=== PATIENT | male | born 1965 | race Caucasian/White ===

== ENCOUNTER 2017-08-25 08:59 | Emergency (ER) | payer OTHER ==
[~2017-08-25] VITALS: Ht 185.4 cm; Wt 107.3 kg
[~2017-08-25 08:59] MED LIST: ADVIL200 MG PO; ALDACTONE25 MG PO; LASIX40 MG PO; LOSARTAN POTASS50 MG PO; ULTRAM50 MG PO
[2017-08-25 10:27] LABS: HEMATOCRIT 32.3 % (38.0-50.0); HEMOGLOBIN 10.9 G/DL (12.5-16.6); MCH 31.3 PG (29.0-34.0); MCHC 33.7 G/DL (30.0-36.0); MCV 92.8 FL (86-99); PLATELET COUNT 426 K/uL (156-360); RBC DIS.WIDTH-CV 13.2 % (11.8-14.6); RBC DIS.WIDTH-SD 45.1 % (39-53); RED BLOOD COUNT 3.48 M/uL (4.00-5.50); WHITE BLOOD COUNT 6.2 K/uL (4.1-10.2)
[2017-08-25 10:35] LABS: ALBUMIN 1.5 g/dL (3.2-4.8); CHLORIDE 103 mEq/L (99-109); POTASSIUM 3.6 mEq/L (3.7-5.4); SODIUM 138 mEq/L (136-147)
[2017-08-25 10:38] LABS: GLUCOSE 85 mg/dL (70-99); TOTAL PROTEIN 4.3 g/dL (6.4-8.3)
[2017-08-25 10:40] LABS: TOTAL BILIRUBIN 0.1 mg/dL (0.0-1.0)
[2017-08-25 10:41] LABS: ALKALINE PHOSPHATASE 77 IU/L (3-129); CREATININE 0.8 mg/dL (0.6-1.3); GFR ESTIMATE (CALCULATED) > 59 mL/min/ (58.99-99999)
[2017-08-25 10:42] LABS: UREA NITROGEN (BUN) 14 mg/dL (9-23)
[2017-08-25 10:43] LABS: AST (GOT) 25 IU/L (2-34)
[2017-08-25 10:44] LABS: ALT (GPT) 18 IU/L (3-49)
[2017-08-25 11:21] LABS: APPEARANCE SL.HAZY ((CLEAR)); BILIRUBIN NEGATIVE; BLOOD NEGATIVE; COLOR YELLOW ((YELLOW)); GLUCOSE (STRIP) 50; KETONES 5; LEUKOCYTES NEGATIVE; NITRITE NEGATIVE; PROTEIN (STRIP) >=500; SPECIFIC GRAVITY 1.029 (1.000-1.030); UROBILINOGEN 0.2 MG/DL (0.2-1.0)
[2017-08-25 11:31] LABS: BACTERIA NONE SEEN /HPF; EPITHELIAL CELLS RARE /HPF; HYALINE CASTS 0-5 /LPF; MUCUS TRACE /LPF
[2017-08-25] MEDS ORDERED: LASIX40 MG PO (11:39)
[2017-08-25] MEDS ORDERED: SPIRONOLACTONE25 MG PO (11:39)
[2017-08-25] MEDS ORDERED: COZAAR50 MG PO (11:39)
[2017-08-25 13:00] VITALS: BP 154/94
== END 2017-08-25 13:00 | disposition home or self-care (01) ==
LOC: EME 08:59
PROVIDERS: Nurse Practitioner Family
DX: R60.1 Generalized edema (principal); E77.8 Other disorders of glycoprotein metabolism; F17.210 Nicotine dependence, cigarettes, uncomplicated; F10.21 Alcohol dependence, in remission; K42.9 Umbilical hernia without obstruction or gangrene; I10 Essential (primary) hypertension; Z91.14 Patient's other noncompliance with medication regimen; Z88.0 Allergy status to penicillin
CPT/HCPCS: 71046; 80053; 81003; 83880; 85027; 93005; 99281; 99285

== ENCOUNTER 2017-10-17 20:46 | Inpatient (IN) | payer OTHER ==
[~2017-10-17] VITALS: Ht 182.9 cm; Wt 91.5 kg
[~2017-10-17 20:46] MED LIST changes: +COZAAR50 MG PO; +SPIRONOLACTONE25 MG PO
[2017-10-17 21:29] LABS: BASOPHIL (%) 0.3 % (0-1); EOSINOPHIL (%) 1.1 % (0-5); EOSINOPHIL COUNT 0.1 K/uL (0-0.3); HEMATOCRIT 16.3 % (38.0-50.0); HEMOGLOBIN 5.2 G/DL (12.5-16.6); IMMATURE GRANULOCYTE (%) 0.3 % (0.0-0.7); LYMPHOCYTE (%) 16.9 % (15-42); LYMPHOCYTE COUNT 1.1 K/uL (1.0-2.8); MCH 29.9 PG (29.0-34.0); MCHC 31.9 G/DL (30.0-36.0); MCV 93.7 FL (86-99); MONOCYTE (%) 6.5 % (3-12); MONOCYTE COUNT 0.4 K/uL (0-0.8); NEUTROPHIL (%) 74.9 % (45-76); NEUTROPHIL COUNT 4.7 K/uL (1.8-6.4); PLATELET COUNT 439 K/uL (156-360); RBC DIS.WIDTH-CV 13.5 % (11.8-14.6); RBC DIS.WIDTH-SD 46.2 % (39-53); RED BLOOD COUNT 1.74 M/uL (4.00-5.50); WHITE BLOOD COUNT 6.3 K/uL (4.1-10.2)
[2017-10-17 21:34] LABS: CHLORIDE 107 mEq/L (99-109); POTASSIUM 4.3 mEq/L (3.7-5.4); SODIUM 141 mEq/L (136-147)
[2017-10-17 21:36] LABS: GLUCOSE 98 mg/dL (70-99)
[2017-10-17 21:39] LABS: CREATININE 0.7 mg/dL (0.6-1.3); GFR ESTIMATE (CALCULATED) > 59 mL/min/ (58.99-99999)
[2017-10-17 21:40] LABS: UREA NITROGEN (BUN) 14 mg/dL (9-23)
[2017-10-17] MEDS ORDERED: COZAAR50 MG PO (21:42)
[2017-10-17] MEDS ORDERED: ALDACTONE25 MG PO (21:42)
[2017-10-17] MEDS ORDERED: LO-DOSE ASPIRIN81 M1 PO (21:43)
[2017-10-17] MEDS ORDERED: ZOCOR20 MG PO (21:43)
[2017-10-17] MEDS ORDERED: LASIX40 MG PO (21:43)
[2017-10-17] MEDS ORDERED: NICODERM CQ1 EAC2 TD (21:44)
[2017-10-17 21:45] LABS: TROP-I INTERPRETATION NEGATIVE; TROPONIN-I < 0.01 ng/mL (0.0-0.30)
[2017-10-17 22:03] LABS: ALBUMIN 1.4 g/dL (3.2-4.8)
[2017-10-17 22:06] LABS: TOTAL PROTEIN 4.1 g/dL (6.4-8.3)
[2017-10-17 22:08] LABS: TOTAL BILIRUBIN 0.1 mg/dL (0.0-1.0)
[2017-10-17 22:09] LABS: ALKALINE PHOSPHATASE 84 IU/L (3-129)
[2017-10-17 22:11] LABS: AST (GOT) 16 IU/L (2-34); DIRECT BILIRUBIN 0.1 mg/dL (0.0-0.3)
[2017-10-17 22:12] LABS: ALT (GPT) 11 IU/L (3-49)
[2017-10-17 22:30] LABS: APPEARANCE CLOUDY ((CLEAR)); BILIRUBIN NEGATIVE; BLOOD SMALL; COLOR YELLOW ((YELLOW)); GLUCOSE (STRIP) 50; KETONES 5; LEUKOCYTES NEGATIVE; NITRITE NEGATIVE; PROTEIN (STRIP) >=500; SPECIFIC GRAVITY 1.022 (1.000-1.030); UROBILINOGEN 0.2 MG/DL (0.2-1.0)
[2017-10-17 22:37] LABS: BACTERIA RARE /HPF; EPITHELIAL CELLS RARE /HPF; MUCUS TRACE /LPF; RED BLOOD CELLS 0-5 /HPF (0-5); UCUL ADDED? YES
[2017-10-17 23:30] VITALS: BP 165/114
[2017-10-17 23:31] VITALS: BP 165/114
[2017-10-17 23:40] VITALS: BP 158/100
[2017-10-17 23:55] VITALS: BP 160/94
[2017-10-18] VITALS (35 sets, daily range): BP systolic 100–178; BP diastolic 63–114
[2017-10-18 04:08] LABS: CHLORIDE 105 mEq/L (99-109); POTASSIUM 3.9 mEq/L (3.7-5.4); SODIUM 141 mEq/L (136-147)
[2017-10-18 04:09] LABS: MAGNESIUM 1.8 mg/dL (1.3-2.7)
[2017-10-18 04:13] LABS: GLUCOSE 92 mg/dL (70-99)
[2017-10-18 04:14] LABS: CREATININE 0.8 mg/dL (0.6-1.3); GFR ESTIMATE (CALCULATED) > 59 mL/min/ (58.99-99999); PHOSPHORUS 4.3 mg/dL (2.5-4.9)
[2017-10-18 04:18] LABS: UREA NITROGEN (BUN) 15 mg/dL (9-23)
[2017-10-18 04:28] LABS: HEMATOCRIT 17.6 % (38.0-50.0); HEMOGLOBIN 5.6 G/DL (12.5-16.6); MCH 29.5 PG (29.0-34.0); MCHC 31.8 G/DL (30.0-36.0); MCV 92.6 FL (86-99); PLATELET COUNT 406 K/uL (156-360); RBC DIS.WIDTH-CV 14.2 % (11.8-14.6); RBC DIS.WIDTH-SD 47.6 % (39-53); WHITE BLOOD COUNT 4.7 K/uL (4.1-10.2)
[2017-10-18 06:42] LABS: HEPATITIS B SURFACE ANTIGEN Nonreactive
[2017-10-18 06:43] LABS: HEPATITIS C ANTIBODY Nonreactive
[2017-10-18 06:44] LABS: ANTI-HEPATITIS A VIRUS (IGM) Nonreactive
[2017-10-18 06:45] LABS: ANTI-HEPATITIS B CORE (IGM) Nonreactive
[2017-10-18 08:38] LABS: BASOPHIL (%) 0.7 % (0-1); EOSINOPHIL (%) 2.4 % (0-5); EOSINOPHIL COUNT 0.1 K/uL (0-0.3); HEMATOCRIT 18.6 % (38.0-50.0); IMMATURE GRANULOCYTE (%) 0.2 % (0.0-0.7); LYMPHOCYTE COUNT 1.1 K/uL (1.0-2.8); MCH 27.4 PG (29.0-34.0); MCHC 30.6 G/DL (30.0-36.0); MCV 89.4 FL (86-99); MONOCYTE (%) 8.5 % (3-12); MONOCYTE COUNT 0.4 K/uL (0-0.8); NEUTROPHIL (%) 62.2 % (45-76); NEUTROPHIL COUNT 2.6 K/uL (1.8-6.4); RBC DIS.WIDTH-CV 17.4 % (11.8-14.6); RBC DIS.WIDTH-SD 57.2 % (39-53); RED BLOOD COUNT 2.08 M/uL (4.00-5.50); WHITE BLOOD COUNT 4.1 K/uL (4.1-10.2)
[2017-10-18 08:40] LABS: HEMOGLOBIN 5.7 G/DL (12.5-16.6)
[2017-10-18 09:14] LABS: PLAT.SUFFICIENCY INCREASED; PLATELET COUNT 370 K/uL (156-360)
[2017-10-18 18:11] LABS: HEMATOCRIT 25.3 % (38.0-50.0); MCV 89.1 FL (86-99)
[2017-10-18 18:15] LABS: HEMOGLOBIN 7.9 G/DL (12.5-16.6)
[2017-10-19] VITALS (24 sets, daily range): BP systolic 134–179; BP diastolic 68–103
[2017-10-19 05:26] LABS: HEMATOCRIT 25.6 % (38.0-50.0); MCH 27.9 PG (29.0-34.0); MCHC 31.3 G/DL (30.0-36.0); MCV 89.2 FL (86-99); PLATELET COUNT 380 K/uL (156-360); RBC DIS.WIDTH-CV 17.1 % (11.8-14.6); RBC DIS.WIDTH-SD 55.8 % (39-53)
[2017-10-19 05:28] LABS: RED BLOOD COUNT 2.87 M/uL (4.00-5.50)
[2017-10-19 06:06] LABS: ALBUMIN 1.5 G/DL (3.2-4.8); ALKALINE PHOSPHATASE 61 IU/L (3-129); ALT (GPT) 7 IU/L (3-49); AST (GOT) 11 IU/L (2-34); CHLORIDE 102 MEQ/L (99-109); GFR ESTIMATE (CALCULATED) > 59 mL/min/ (58.99-99999); GLUCOSE 97 mg/dL (70-99); MAGNESIUM 1.8 mg/dl (1.3-2.7); POTASSIUM 4.1 MEQ/L (3.7-5.4); SODIUM 139 MEQ/L (136-147); TOTAL BILIRUBIN 0.1 MG/DL (0.0-1.0); TOTAL PROTEIN 3.9 G/DL (6.4-8.3); UREA NITROGEN (BUN) 16 mg/dL (9-23)
[2017-10-20] VITALS (18 sets, daily range): BP systolic 130–181; BP diastolic 66–102
[2017-10-20 05:05] LABS: BASOPHIL (%) 0.2 % (0-1); EOSINOPHIL (%) 2.7 % (0-5); EOSINOPHIL COUNT 0.1 K/uL (0-0.3); HEMATOCRIT 25.1 % (38.0-50.0); HEMOGLOBIN 7.8 G/DL (12.5-16.6); IMMATURE GRANULOCYTE (%) 0.2 % (0.0-0.7); LYMPHOCYTE (%) 23.5 % (15-42); LYMPHOCYTE COUNT 1.1 K/uL (1.0-2.8); MCH 27.7 PG (29.0-34.0); MCHC 31.1 G/DL (30.0-36.0); MONOCYTE (%) 11.3 % (3-12); MONOCYTE COUNT 0.5 K/uL (0-0.8); NEUTROPHIL (%) 62.1 % (45-76); PLATELET COUNT 357 K/uL (156-360); RBC DIS.WIDTH-CV 16.2 % (11.8-14.6); RBC DIS.WIDTH-SD 53.1 % (39-53); RED BLOOD COUNT 2.82 M/uL (4.00-5.50); WHITE BLOOD COUNT 4.8 K/uL (4.1-10.2)
[2017-10-20 05:57] LABS: CHLORIDE 99 MEQ/L (99-109); CREATININE 0.9 MG/DL (0.6-1.3); GFR ESTIMATE (CALCULATED) > 59 mL/min/ (58.99-99999); GLUCOSE 81 mg/dL (70-99); MAGNESIUM 1.6 mg/dl (1.3-2.7); PHOSPHORUS 3.7 mg/dL (2.5-4.9); POTASSIUM 3.9 MEQ/L (3.7-5.4); SODIUM 139 MEQ/L (136-147); UREA NITROGEN (BUN) 16 mg/dL (9-23)
[2017-10-21 04:20] VITALS: BP 130/69
[2017-10-21 05:33] LABS: BASOPHIL (%) 0.5 % (0-1); EOSINOPHIL (%) 4.2 % (0-5); EOSINOPHIL COUNT 0.2 K/uL (0-0.3); HEMATOCRIT 27.1 % (38.0-50.0); HEMOGLOBIN 8.5 G/DL (12.5-16.6); IMMATURE GRANULOCYTE (%) 0.4 % (0.0-0.7); LYMPHOCYTE (%) 25.1 % (15-42); LYMPHOCYTE COUNT 1.4 K/uL (1.0-2.8); MCH 27.6 PG (29.0-34.0); MCHC 31.4 G/DL (30.0-36.0); MONOCYTE (%) 9.3 % (3-12); MONOCYTE COUNT 0.5 K/uL (0-0.8); NEUTROPHIL (%) 60.5 % (45-76); NEUTROPHIL COUNT 3.3 K/uL (1.8-6.4); PLATELET COUNT 347 K/uL (156-360); RBC DIS.WIDTH-CV 15.6 % (11.8-14.6); RBC DIS.WIDTH-SD 49.9 % (39-53); RED BLOOD COUNT 3.08 M/uL (4.00-5.50); WHITE BLOOD COUNT 5.5 K/uL (4.1-10.2)
[2017-10-21 06:00] LABS: CHLORIDE 94 MEQ/L (99-109); CREATININE 0.8 MG/DL (0.6-1.3); GFR ESTIMATE (CALCULATED) > 59 mL/min/ (58.99-99999); GLUCOSE 98 mg/dL (70-99); MAGNESIUM 1.8 mg/dl (1.3-2.7); PHOSPHORUS 3.3 mg/dL (2.5-4.9); POTASSIUM 3.5 MEQ/L (3.7-5.4); SODIUM 134 MEQ/L (136-147); UREA NITROGEN (BUN) 13 mg/dL (9-23)
[2017-10-21 07:56] VITALS: BP 109/80
[2017-10-21 11:20] VITALS: BP 135/82
[2017-10-21 15:50] VITALS: BP 113/75
[2017-10-21 20:37] VITALS: BP 120/76
[2017-10-22 00:05] VITALS: BP 129/60
[2017-10-22 05:07] VITALS: BP 113/58
[2017-10-22 06:19] LABS: HDL CHOLESTEROL 30 MG/DL (Desirable>=40); LDL CHOLESTEROL 96 mg/dL (Desirable<100); NON-HDL CHOLESTEROL 134 mg/dL (Desirable<160); TOTAL CHOLESTEROL 164 mg/dL (Desirable<200); TRIGLYCERIDES 188 MG/DL (Normal: <150)
[2017-10-22 07:52] VITALS: BP 131/70
[2017-10-22 12:10] VITALS: BP 123/69
[2017-10-22 16:03] VITALS: BP 124/62
[2017-10-23 00:02] VITALS: BP 147/67
[2017-10-23 07:40] VITALS: BP 160/78
[2017-10-23 09:00] LABS: HEMOGLOBIN 8.1 G/DL (12.5-16.6); MCH 28.1 PG (29.0-34.0); MCHC 31.2 G/DL (30.0-36.0); MCV 90.3 FL (86-99); PLATELET COUNT 353 K/uL (156-360); RBC DIS.WIDTH-CV 15.3 % (11.8-14.6); RBC DIS.WIDTH-SD 50.4 % (39-53); RED BLOOD COUNT 2.88 M/uL (4.00-5.50); WHITE BLOOD COUNT 5.6 K/uL (4.1-10.2)
[2017-10-23 09:24] LABS: CHLORIDE 93 MEQ/L (99-109); CREATININE 0.9 MG/DL (0.6-1.3); GFR ESTIMATE (CALCULATED) > 59 mL/min/ (58.99-99999); GLUCOSE 87 mg/dL (70-99); POTASSIUM 3.4 MEQ/L (3.7-5.4); SODIUM 134 MEQ/L (136-147); UREA NITROGEN (BUN) 13 mg/dL (9-23)
[2017-10-23 15:50] VITALS: BP 115/64
[2017-10-23 23:31] VITALS: BP 146/73
[2017-10-24 06:28] LABS: HEMATOCRIT 27.3 % (38.0-50.0); HEMOGLOBIN 8.3 G/DL (12.5-16.6); MCH 27.5 PG (29.0-34.0); MCHC 30.4 G/DL (30.0-36.0); MCV 90.4 FL (86-99); PLATELET COUNT 360 K/uL (156-360); RBC DIS.WIDTH-CV 15.1 % (11.8-14.6); RBC DIS.WIDTH-SD 49.9 % (39-53); RED BLOOD COUNT 3.02 M/uL (4.00-5.50); WHITE BLOOD COUNT 5.9 K/uL (4.1-10.2)
[2017-10-24 06:51] LABS: CHLORIDE 91 MEQ/L (99-109); GFR ESTIMATE (CALCULATED) > 59 mL/min/ (58.99-99999); GLUCOSE 95 mg/dL (70-99); POTASSIUM 3.8 MEQ/L (3.7-5.4); SODIUM 133 MEQ/L (136-147); UREA NITROGEN (BUN) 15 mg/dL (9-23)
[2017-10-24 07:23] VITALS: BP 111/57
[2017-10-24 11:35] LABS: UR CREATININE CONCENTRATION 12.7 MG/DL
[2017-10-24 15:20] VITALS: BP 119/70
[2017-10-24 23:51] VITALS: BP 120/65
[2017-10-25 05:31] LABS: BASOPHIL (%) 0.6 % (0-1); EOSINOPHIL (%) 4.4 % (0-5); EOSINOPHIL COUNT 0.2 K/uL (0-0.3); HEMATOCRIT 23.3 % (38.0-50.0); HEMOGLOBIN 7.1 G/DL (12.5-16.6); IMMATURE GRANULOCYTE (%) 0.2 % (0.0-0.7); LYMPHOCYTE (%) 22.2 % (15-42); LYMPHOCYTE COUNT 1.2 K/uL (1.0-2.8); MCH 27.5 PG (29.0-34.0); MCHC 30.5 G/DL (30.0-36.0); MCV 90.3 FL (86-99); MONOCYTE (%) 10.1 % (3-12); MONOCYTE COUNT 0.5 K/uL (0-0.8); NEUTROPHIL (%) 62.5 % (45-76); NEUTROPHIL COUNT 3.3 K/uL (1.8-6.4); PLATELET COUNT 348 K/uL (156-360); RBC DIS.WIDTH-CV 15.2 % (11.8-14.6); RBC DIS.WIDTH-SD 50.3 % (39-53); RED BLOOD COUNT 2.58 M/uL (4.00-5.50); WHITE BLOOD COUNT 5.2 K/uL (4.1-10.2)
[2017-10-25 06:02] LABS: ALKALINE PHOSPHATASE 62 IU/L (3-129); ALT (GPT) 7 IU/L (3-49); AST (GOT) 10 IU/L (2-34); CHLORIDE 95 MEQ/L (99-109); CREATININE 1.1 MG/DL (0.6-1.3); GFR ESTIMATE (CALCULATED) > 59 mL/min/ (58.99-99999); GLUCOSE 89 mg/dL (70-99); MAGNESIUM 1.8 mg/dl (1.3-2.7); PHOSPHORUS 3.8 mg/dL (2.5-4.9); POTASSIUM 3.8 MEQ/L (3.7-5.4); SODIUM 135 MEQ/L (136-147); TOTAL BILIRUBIN 0.1 MG/DL (0.0-1.0); TOTAL PROTEIN 3.5 G/DL (6.4-8.3); UREA NITROGEN (BUN) 15 mg/dL (9-23)
[2017-10-25 06:03] LABS: ALBUMIN 1.1 G/DL (3.2-4.8)
[2017-10-25 07:55] VITALS: BP 133/69
[2017-10-25 10:53] LABS: BASOPHIL (%) 0.7 % (0-1); EOSINOPHIL COUNT 0.2 K/uL (0-0.3); HEMOGLOBIN 7.9 G/DL (12.5-16.6); IMMATURE GRANULOCYTE (%) 0.3 % (0.0-0.7); LYMPHOCYTE (%) 19.8 % (15-42); LYMPHOCYTE COUNT 1.2 K/uL (1.0-2.8); MCH 27.7 PG (29.0-34.0); MCHC 30.4 G/DL (30.0-36.0); MCV 91.2 FL (86-99); MONOCYTE (%) 7.5 % (3-12); MONOCYTE COUNT 0.5 K/uL (0-0.8); NEUTROPHIL (%) 68.7 % (45-76); NEUTROPHIL COUNT 4.1 K/uL (1.8-6.4); PLATELET COUNT 373 K/uL (156-360); RBC DIS.WIDTH-CV 15.2 % (11.8-14.6); RBC DIS.WIDTH-SD 50.9 % (39-53); RED BLOOD COUNT 2.85 M/uL (4.00-5.50)
[2017-10-25 15:25] VITALS: BP 144/67
[2017-10-25 22:16] LABS: STOOL OCCULT BLD 1ST SPECIMEN NEGATIVE
[2017-10-26] VITALS: BP 131/62
[2017-10-26 06:44] LABS: BASOPHIL (%) 0.8 % (0-1); EOSINOPHIL (%) 4.3 % (0-5); EOSINOPHIL COUNT 0.2 K/uL (0-0.3); HEMATOCRIT 21.7 % (38.0-50.0); IMMATURE GRANULOCYTE (%) 0.4 % (0.0-0.7); LYMPHOCYTE (%) 24.4 % (15-42); LYMPHOCYTE COUNT 1.2 K/uL (1.0-2.8); MCH 27.7 PG (29.0-34.0); MCHC 30.9 G/DL (30.0-36.0); MCV 89.7 FL (86-99); MONOCYTE (%) 10.8 % (3-12); MONOCYTE COUNT 0.5 K/uL (0-0.8); NEUTROPHIL (%) 59.3 % (45-76); NEUTROPHIL COUNT 2.9 K/uL (1.8-6.4); PLATELET COUNT 350 K/uL (156-360); RBC DIS.WIDTH-CV 15.4 % (11.8-14.6); RBC DIS.WIDTH-SD 50.4 % (39-53); RED BLOOD COUNT 2.42 M/uL (4.00-5.50); WHITE BLOOD COUNT 4.9 K/uL (4.1-10.2)
[2017-10-26 06:49] LABS: HEMOGLOBIN 6.7 G/DL (12.5-16.6)
[2017-10-26 06:55] LABS: ALKALINE PHOSPHATASE 63 IU/L (3-129); ALT (GPT) 6 IU/L (3-49); AST (GOT) 10 IU/L (2-34); CHLORIDE 95 MEQ/L (99-109); CREATININE 1.1 MG/DL (0.6-1.3); GFR ESTIMATE (CALCULATED) > 59 mL/min/ (58.99-99999); GLUCOSE 92 mg/dL (70-99); SODIUM 136 MEQ/L (136-147); TOTAL BILIRUBIN 0.1 MG/DL (0.0-1.0); TOTAL PROTEIN 3.4 G/DL (6.4-8.3); UREA NITROGEN (BUN) 18 mg/dL (9-23)
[2017-10-26 06:59] LABS: ALBUMIN < 1.5 G/DL (3.2-4.8)
[2017-10-26 07:43] VITALS: BP 127/73
[2017-10-26 08:40] LABS: BASOPHIL (%) 0.6 % (0-1); EOSINOPHIL (%) 4.1 % (0-5); EOSINOPHIL COUNT 0.2 K/uL (0-0.3); HEMATOCRIT 23.2 % (38.0-50.0); HEMOGLOBIN 7.2 G/DL (12.5-16.6); IMMATURE GRANULOCYTE (%) 0.2 % (0.0-0.7); LYMPHOCYTE (%) 20.8 % (15-42); LYMPHOCYTE COUNT 1.1 K/uL (1.0-2.8); MCV 90.3 FL (86-99); MONOCYTE (%) 9.2 % (3-12); MONOCYTE COUNT 0.5 K/uL (0-0.8); NEUTROPHIL (%) 65.1 % (45-76); NEUTROPHIL COUNT 3.3 K/uL (1.8-6.4); NRBC (%) 0.4 /100 WBC (0-0); PLATELET COUNT 379 K/uL (156-360); RBC DIS.WIDTH-CV 15.2 % (11.8-14.6); RBC DIS.WIDTH-SD 50.1 % (39-53); RED BLOOD COUNT 2.57 M/uL (4.00-5.50); WHITE BLOOD COUNT 5.1 K/uL (4.1-10.2)
[2017-10-26 13:43] VITALS: BP 128/69
[2017-10-26 14:15] VITALS: BP 132/70
[2017-10-26] MEDS ORDERED: LO-DOSE ASPIRIN81 M1 PO (15:16)
[2017-10-26] MEDS ORDERED: SPIRONOLACTONE25 MG PO (15:16)
[2017-10-26] MEDS ORDERED: COZAAR50 MG PO (15:16)
[2017-10-26] MEDS ORDERED: BUMETANIDE1 MG PO (15:17)
[2017-10-26] MEDS ORDERED: CALCIUM CARB1 TABLET PO (15:17)
[2017-10-26] MEDS ORDERED: NICODERM CQ1 EAC2 TD (15:18)
[2017-10-26] MEDS ORDERED: PROAIR RESPICL90 MCG IH (15:18)
[2017-10-26] MEDS ORDERED: ZOCOR20 MG PO (15:18)
[2017-10-26] MEDS ORDERED: PANTOPRAZOLE SO40 MG PO (15:19)
[2017-10-26] MEDS ORDERED: MITRAZOL 2% CRE45 GM TP (15:19)
[2017-10-26] MEDS ORDERED: OXYCODONE HCL5 MG PO (15:23)
[2017-10-26 15:24] VITALS: BP 135/73
[2017-10-26 16:28] VITALS: BP 137/76
== END 2017-10-26 18:35 | disposition home health service (06) | DRG 291 ==
LOC: EME → EDBD 20:46 → EDOF 22:25 → 4WEST 22:25 → ENRESERV 22:26 → 4WEST 23:14 → ENRESERV 10-20 15:06 → 4EAST 10-20 17:37 → ENRESERV 10-22 08:09 → 5SOUTH 10-22 11:45
PROVIDERS: Emergency Medicine; Internal Medicine; Internal Medicine Critical Care Medicine; Internal Medicine Nephrology; Surgery
DX: I13.2 Hypertensive heart and chronic kidney disease with heart failure and with stage 5 chronic kidney disease, or end stage renal disease (principal); N00.2 Acute nephritic syndrome with diffuse membranous glomerulonephritis; N18.6 End stage renal disease; K92.1 Melena; N04.2 Nephrotic syndrome with diffuse membranous glomerulonephritis; D62 Acute posthemorrhagic anemia; E87.1 Hypo-osmolality and hyponatremia; E87.3 Alkalosis; K22.10 Ulcer of esophagus without bleeding; K56.609 Unspecified intestinal obstruction, unspecified as to partial versus complete obstruction; N02.2 Recurrent and persistent hematuria with diffuse membranous glomerulonephritis; R18.8 Other ascites; J98.11 Atelectasis; E46 Unspecified protein-calorie malnutrition; F17.210 Nicotine dependence, cigarettes, uncomplicated; R68.81 Early satiety; K42.9 Umbilical hernia without obstruction or gangrene; D12.5 Benign neoplasm of sigmoid colon; E87.6 Hypokalemia; E77.8 Other disorders of glycoprotein metabolism; G47.30 Sleep apnea, unspecified; K62.1 Rectal polyp; K44.9 Diaphragmatic hernia without obstruction or gangrene; K74.60 Unspecified cirrhosis of liver; R91.1 Solitary pulmonary nodule; Z91.14 Patient's other noncompliance with medication regimen; Z88.0 Allergy status to penicillin; Z88.5 Allergy status to narcotic agent; Z79.82 Long term (current) use of aspirin; Z56.0 Unemployment, unspecified; Z91.19 Patient's noncompliance with other medical treatment and regimen; Z68.27 Body mass index [BMI] 27.0-27.9, adult; Z99.81 Dependence on supplemental oxygen; Z80.0 Family history of malignant neoplasm of digestive organs; Z80.8 Family history of malignant neoplasm of other organs or systems
CPT/HCPCS: 71045; 71046; 71260; 74177; 80048; 80048 91; 80053; 80061; 80074; 80076; 81003; 82272; 82330; 82570; 83520 90; 83605; 83735; 83880; 84100; 84156; 84484; 85014; 85018; 85025; 85025 91; 85027; 86255 90; 86850; 86900; 86901; 86920; 87086; 87641; 88305; 93005; 93306; 93970; 94640; 94640 76; 94799; 97530 GO; 97530 GP; 99281; 99285; C9113; J1940; J2250; J2405; P9016; P9047